=== PATIENT | male | born 1960 | race Caucasian/White ===

== ENCOUNTER 2016-05-09 08:49 | Day surgery (SDC) | payer OTHER ==
[~2016-05-09] VITALS: Ht 170.2 cm; Wt 84.0 kg
[2016-05-09 10:35] VITALS: Ht 170.2 cm; Wt 84.0 kg
[2016-05-09 10:50] VITALS: BP 123/79; PULSE 80; RESP 15
[2016-05-09] MEDS ORDERED: METF500T PO (10:54)
[2016-05-09] MEDS ORDERED: ASPI325T4 PO (10:54)
[2016-05-09] MEDS ORDERED: LOSA25TA5 PO (10:54)
[2016-05-09] MEDS ORDERED: GLIP-95 PO (10:54)
[2016-05-09] MEDS ORDERED: ATOR40TA68 PO (10:54)
[2016-05-09] MEDS ORDERED: NPH,100V SQ (10:54)
[2016-05-09] MEDS ORDERED: MIDAZOLAM 1 MG/ML 2 ML INJ ONE ×2 (11:38)
[2016-05-09] MEDS ORDERED: FENTAnyl 50 MCG/ML VIAL ONE (11:38)
[2016-05-09 11:58] VITALS: BP 103/74; PULSE 74; RESP 21
--- NOTE | 2016-05-10 09:59 | GILP ---
DATE OF PROCEDURE: PROCEDURE: Screening colonoscopy. Rule out colon polyps. POSTOPERATIVE DIAGNOSES: 1. Occasional diverticula noted in the descending colon which were small and minimal. 2. Minimal external hemorrhoids were noted which were not bleeding. DESCRIPTION OF PROCEDURE: After informed written consent was obtained, the patient was asked to lie on the left lateral side, and 3 mg Versed and 75 mcg of fentanyl were given as intravenous anesthes ia. When the patient became somnolent, the Olympus video colonoscope was introduced into the rectum, and the scope was advanced all the way to the cecum. The entire colon appeared perfectly normal with n o mucosal abnormality. Occasional diverticula noted in the descending colon. On the way out, minim al external hemorrhoids were noted, and the procedure was terminated. PLAN: Recommend colonoscopy in 10 years. Dictated By: GORDON MARSHALL/PATRICIO Conf#: [id number] DID#: [id number] CC: ;*EndCC*
== END 2016-05-09 12:00 | disposition home or self-care (01) ==
LOC: GIL 08:49
PROVIDERS: ATTEND Internal Medicine Gastroenterology
DX: Z12.11 Encounter for screening for malignant neoplasm of colon (principal); K57.90 Diverticulosis of intestine, part unspecified, without perforation or abscess without bleeding; K64.4 Residual hemorrhoidal skin tags; I10 Essential (primary) hypertension; E11.9 Type 2 diabetes mellitus without complications
CPT/HCPCS: 45378; 82962; J2250; J3010; Z7610